=== PATIENT | male | born 1970 | race Caucasian/White ===

== ENCOUNTER → 2021-01-20 09:47 | Outpatient (CLI) | payer OTHER, SELFPAY | DX: R06.81 Apnea, not elsewhere classified (principal) | CPT/HCPCS: 95806 ==

== ENCOUNTER → 2024-10-10 | Outpatient (CLI) | payer OTHER, SELFPAY ==
--- NOTE | 2024-10-10 11:51 | EKG12_ITS ---
Test Reason : DYSPNEA Blood Pressure : */* mmHG Vent. Rate : 78 BPM Atrial Rate : 78 BPM P-R Int : 142 ms QRS Dur : 102 ms QT Int : 378 ms P-R-T Axes : 23 -41 17 degrees QTcB Int : 430 ms Normal sinus rhythm Left axis deviation Abnormal ECG Confirmed by Ayan Lei ([id number]), purchase request editor ZENAIDA LOTT ([id number]) on 10/10/2024 1:19:58 PM Referred By: Mariya Villela Confirmed By: Ayan Lei
--- NOTE | 2024-10-10 11:52 | RAD_ITS ---
PROCEDURE: CHEST PA AND LATERAL REASON FOR EXAM: DYSPNEA TECHNIQUE: Frontal and lateral views of the chest. COMPARISON: None. FINDINGS: The cardiothymic contour is normal. The lungs are clear. The bones are unremarkable. RAD/Chest PA and Lateral IMPRESSION: NORMAL PEDIATRIC CHEST. Reading Location: [facility]
--- NOTE | 2024-10-10 14:04 | STRESSREP_ITS ---
Stress Test Report Date: 10/10/2024 Procedure: Exercise tolerance test Indications: Dyspnea Consent: Per the patient Procedure: The patient exercised on a Yaya protocol for 7 minutes and 25 seconds achieving a peak heart rate of 151 bpm (90% predicted maximal heart rate) with a peak blood pressure 180/100 mmHg and a peak MET capacity of approximately 10.1 MET's. The baseline ECG demonstrated normal sinus rhythm. The peak exercise ECG demonstrated no significant ischemic changes. [There were no cardiac dysrhythmias pretest, during exercise, or recovery]. The functional capacity was considered normal for age. The patient had no complaint of chest discomfort during exercise or recovery. The examination was discontinued secondary to achieving target heart rate. Impression: 1. Technically adequate (percent predicted maximal heart rate greater than 85%) exercise tolerance test 2. Stress test is negative for exercise-induced chest pain. 3. Stress test test is negative for exercise-induced EKG changes of ischemia. 4. Functional capacity is normal for age This note was generated with [employer] software. It may contain incorrect words, spelling, and punctuation that were not noted in checking the note before signing.
== END | disposition home or self-care (01) ==
PROVIDERS: Referring Provider Nurse Practitioner Family; Visit Provider Nurse Practitioner Family
DX: R06.00 Dyspnea, unspecified (principal)
CPT/HCPCS: 71046; 93005; 93017